=== PATIENT | female | born 1945 | race American Indian/Alaskan Native ===

== ENCOUNTER 2021-04-07 09:01 | Outpatient (CLI) | payer MEDICARE ==
--- NOTE | 2021-04-16 12:46 | Mammography Report ---
DIGITAL SCREENING MAMMOGRAM WITH CAD, 04/07/2021 CLINICAL INFORMATION / INDICATION: Routine screening mammography. SCREENING MAMMO Z12.31/ HISTORY OF BREAST CA Z85.3 TECHNIQUE: Digital left 2D mammography was obtained in the craniocaudal and mediolateral oblique pro jections. This examination was interpreted with the benefit of Computer-Aided Detection analysis. COMPARISON: 09/07/2017 through 10/20/2019. FINDINGS: Breast Density: There are scattered areas of fibroglandular density. No dominant mass, suspicious calcifications, or architectural distortion in the left breast. Several benign low axillary lymph nodes are again identified. IMPRESSION: No mammographic evidence of malignancy. Follow up recommendation: Routine yearly BI-RADS Category 2: Benign. A "normal" or negative report should not discourage follow up or biopsy of a clinically significant f inding. A written summary of these findings will be mailed to the patient. The patient will be entered into a mammography reporting system which will generate a reminder letter for the patient's next appointmen t at the appropriate interval. The [employer] recommends yearly mammograms starting at age 40 and continuing as l lawrence as a woman is in good health. Breast MRI is recommended for women with an approximate 20-25% or greater lifetime risk of breast cancer, including women with a strong family history of breast or ova kory cancer or who have been treated for Hodgkin's disease. Signer Name: Evan Knigth MD Signed: 04/16/2021 12:41 PM Workstation Name: [id number]
== END 2021-04-07 09:02 | disposition home or self-care (01) ==
LOC: SPVWC 09:01 → EDBD 09:01 → SPVWC 09:02
PROVIDERS: ATTEND Urology
DX: Z12.31 Encounter for screening mammogram for malignant neoplasm of breast (principal); Z85.3 Personal history of malignant neoplasm of breast
CPT/HCPCS: 77067